=== PATIENT | female | born 1995 | race Caucasian/White ===

== ENCOUNTER 2019-08-10 12:52 | Emergency (ER) | payer SELFPAY ==
[~2019-08-10] VITALS: Ht 167.6 cm; Wt 81.5 kg
--- NOTE | 2019-08-10 13:41 | NUR ---
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
[2019-08-10] MEDS ORDERED: SODIUM CHLORIDE FLUSH 10ML SYR IVF ONE (14:00)
[2019-08-10] MEDS ORDERED: SODIUM CHLORIDE 0.9% 1,000ML IVBOLUS ONE (14:00)
[2019-08-10] MEDS ORDERED: PROCHLORPERAZINE 5 MG/ML, 2ML IVPush ONE (14:00)
[2019-08-10] MEDS ORDERED: MORPHINE SULFATE 4 MG/ML, 1ML IVPush PRN (14:00)
[2019-08-10] MEDS ORDERED: PROCHLORPERAZINE 5 MG/ML, 2ML ONE (14:21)
[2019-08-10] MEDS ORDERED: MORPHINE SULFATE 4 MG/ML, 1ML ONE (14:21)
[2019-08-10 14:25] LABS: MICROSCOPIC INDICATED
--- NOTE | 2019-08-10 14:26 | NUR ---
PIV ESTABLISHED. PT TOLERATED WITH NO COMPLICATIONS. BLOOD OBTAINED. UA WALKED TO LAB.
[2019-08-10] MEDS ORDERED: PANTOPRAZOLE 40 MG IV ONE (14:30)
[2019-08-10] MEDS ORDERED: PANTOPRAZOLE 40 MG IV IVPush ONE (14:30)
[2019-08-10 14:41] LABS: CULTURE INDICATED? YES
[2019-08-10 14:53] LABS: BASOPHILS # (AUTO) 0.01 x10^3/uL (0-0.1); BASOPHILS % (AUTO) 0 % (0-1); EOSINOPHILS % (AUTO) 1 % (1-7); LYMPHOCYTES # (AUTO) 1.97 x10^3/uL (1-3.4); LYMPHOCYTES % (AUTO) 17 % (22-44); MD NO; MEAN CORPUSCULAR HEMOGLOBIN 32.1 pg (27.0-34.8); MEAN CORPUSCULAR HGB CONC 33.2 g/dL (32.4-35.8); MEAN CORPUSCULAR VOLUME 96.8 fL (80-100); MEAN PLATELET VOLUME 7.9 fL (7.4-10.4); MONOCYTES # (AUTO) 0.68 x10^3/uL (0.2-0.8); MONOCYTES % (AUTO) 6 % (2-9); NEUTROPHILS # (AUTO) 9.16 x10^3/uL (1.8-6.8); NEUTROPHILS % (AUTO) 77 % (42-75); PLATELET COUNT 332 x10^3/uL (130-400); RED BLOOD COUNT 4.97 x10^6/uL (3.82-5.3); RED CELL DISTRIBUTION WIDTH 13.3 % (9.6-15.2)
--- NOTE | 2019-08-10 15:00 | NUR ---
PT GIVEN WARM BLANKET. US COMPLETE. NADN. FRIEND BEDSIDE.
[2019-08-10 15:08] LABS: ALANINE AMINOTRANSFERASE 30 U/L (12-78); ALBUMIN 4.4 g/dL (3.4-5.0); ANION GAP 9 mmol/L (5-15); CALCIUM 9.5 mg/dL (8.5-10.1); CHLORIDE 107 mmol/L (98-107); CREATININE 0.87 mg/dL (0.55-1.02)
[2019-08-10 15:13] LABS: ALKALINE PHOSPHATASE 71 U/L (45-117); BILIRUBIN,TOTAL 0.9 mg/dL (0.2-1.0); TOTAL PROTEIN 8.9 g/dL (6.4-8.2)
--- NOTE | 2019-08-10 15:46 | NUR ---
PT RESTING WITH EYES CLOSED. FRIEND AT BEDSIDE.
[2019-08-10 16:53] VITALS: BP 116/62
== END 2019-08-10 16:57 | disposition home or self-care (01) ==
LOC: ED 14:53
DX: R10.11 Right upper quadrant pain (principal); R11.2 Nausea with vomiting, unspecified; R10.12 Left upper quadrant pain; F17.210 Nicotine dependence, cigarettes, uncomplicated
CPT/HCPCS: 36415; 76700; 80053; 81001; 83690; 84702; 85025; 87086; 96361; 96374; 96375; 99284; C9113; J0780; J2270; J7030